=== PATIENT | female | born 1965 | race Caucasian/White ===

== ENCOUNTER 2019-08-13 17:39 | Observation (INO) | payer OTHER ==
[2019-08-13] VITALS (7 sets, daily range): BP systolic 118–138; BP diastolic 66–74; PULSE 78–82; TEMP 98.1
[~2019-08-13] VITALS: Ht 152.4 cm; Wt 67.9 kg
[~2019-08-13 17:39] MED LIST: AMITRIPTYLINE H25 M1 PO; ASPIRIN 81M81 MG/TA2 PO; BIOTIN10000 MC1 PO; CARDURA2 MG PO; CELEBREX100 MG PO; CELEXA 20MG20 MG/TAB PO; CELEXA20 MG PO; CLARITIN 1010 MG/TAB PO; COLACE 100100 MG/CAP PO; COZAAR 25MG25 MG/TAB PO; DULCOLAX S10 MG/SUPP RC; FERROUS SULFATE65 MG PO; LANTUS100 U/ML SQ; LEVAQUIN 750MG750 M1 PO; LEVEMIR SQ; LEXAPRO20 MG PO; LIDODERM 5% PATC1 EA TP; LIPITOR 40MG TA40 MG PO; LISINOPRIL10 MG PO; METHADONE5 MG PO; MONISTAT 7 VAG45 GM VG; MULTIPLE VITAMI1 CAP PO; MULTIPLE VITAMI1 TA5 PO; NADOLOL20 MG PO; NAPROSYN500 MG PO; NEURONTIN600 MG/TAB PO; NITROGLYCERIN0.4 MG SL; NITROSTAT0.4 MG/TAB SL; NOVLOG SQ; NOVOLOG 100U100 U/M1 SQ; NOVOLOG FLEX100 U/ML SQ; OXYCONTIN 10MG10 MG PO; PERCOCET 325 MG1 TAB PO; PHENERGAN25 MG RC; PREMARIN0.3 MG PO; PROAIR HFA0.09 MG/AC IH; PROTONIX 40MG T40 MG PO; REGLAN 10MG10 MG/TAB PO; ROXICODONE30 MG PO; RT ADVAIR 528 DISKUS IH; RT SPIRIVA18 MCG IH; SAVELLA50 MG PO; SINEQUAN 2525 MG/CAP PO; SINGULAIR 110 MG/TAB PO; SYNTHROID0.075 MG/T PO; TIZANIDINE4 MG PO; VITAMIN B11000 MCG/M IM; VITAMIN D32000 IU PO; VOLTAREN GEL 1%1 TU TP; XOPENEX HF0.045 MG/A IH; ZANAFLEX 4MG TAB4 MG PO; ZOCOR40 MG PO; ZYRTEC10 MG PO
--- NOTE | 2019-08-13 18:54 | NUR ---
Pt arrives to medical unit rm 351 from other facility via EMS. Pt A&O x 4, reports being hungry, denies further needs. Call light in reach.
[2019-08-13] MEDS ORDERED: NEURONTIN300 MG/CAP PO (21:35)
[2019-08-13 21:50] LABS: ALANINE AMINOTRANSFERASE 11 U/L (4-34); ALKALINE PHOSPHATASE 94 U/L (50-136); ANION GAP 9 mmol/L (7-16); AST,SGOT 20 U/L (15-37); BILIRUBIN,TOTAL 0.6 mg/dL (0.0-1.0); BLOOD UREA NITROGEN 18 mg/dL (7-17); CALCIUM 8.8 mg/dL (8.4-10.2); CARBON DIOXIDE 34 mmol/L (22-30); CHLORIDE 94 mmol/L (98-107); CREATINE KINASE 38 U/L (30-135); CREATININE, serum 0.53 (0.52-1.25); GLUCOSE 367 mg/dL (74-106); MAGNESIUM 2.1 mg/dL (1.6-2.3); SODIUM 137 mmol/L (137-145); TOTAL PROTEIN 7.2 gm/dL (6.4-8.2)
[2019-08-13 21:53] LABS: POTASSIUM 2.7 mmol/L (3.4-5.0)
[2019-08-13 22:07] LABS: TROPONIN-I < 0.012 ng/mL (0.000-0.035)
[2019-08-14] VITALS (11 sets, daily range): BP systolic 94–148; BP diastolic 56–105; PULSE 69–103; TEMP 98–98.9
[2019-08-14 07:31] LABS: ANION GAP 8 mmol/L (7-16); BLOOD UREA NITROGEN 16 mg/dL (7-17); CALCIUM 9.1 mg/dL (8.4-10.2); CARBON DIOXIDE 33 mmol/L (22-30); CHLORIDE 95 mmol/L (98-107); CHOLESTEROL 222 mg/dL (120-200); CHOLESTEROL RISK RATIO 5.4; CREATININE, serum 0.46 (0.52-1.25); GLUCOSE 352 mg/dL (74-106); HDL CHOLESTEROL 41 mg/dL; LDL CHOLESTEROL 157 mg/dL; MAGNESIUM 2.4 mg/dL (1.6-2.3); POTASSIUM 3.3 mmol/L (3.4-5.0); SODIUM 136 mmol/L (137-145); TRIGLYCERIDE 122 mg/dL
[2019-08-14 07:50] LABS: TROPONIN-I < 0.012 ng/mL (0.000-0.035)
--- NOTE | 2019-08-14 07:52 | NUR ---
Pt assessment complete. Pt is sitting up in bed upon entry, she is A/O x4. Her breathing is even and unlabored on RA. Pt denies SOB, occasional cough present. Pt reports pain all over 7/10, requested PRN Morphine. Scheduled lidocaine patch to back. Denies chest pain specifically. Reports some nausea. IVF infusing without complications. No needs at this time. Call light within reach.
[2019-08-14 08:54] LABS: BASO % 0.2 % (0.0-2.0); EOS % 0.1 % (0-4.0); GRAN # 5.8 (1.4-6.5); GRAN % 67.9 % (42.2-75.2); HEMATOCRIT 38.2 % (37.0-47.0); HEMOGLOBIN 12.7 g/dl (12.5-16.0); LYMPH # 2.4 (1.2-3.4); LYMPH % 28.5 % (20.0-51.0); MEAN CELL VOLUME 84 fl (80.0-100.0); MEAN CORPUSCULAR HEMOGLOBIN 28 pg (27.0-31.0); MEAN CORPUSCULAR HGB CONC 33 g/dl (33.0-37.0); MEAN PLATELET VOLUME 9.2 fl (7.4-10.4); MONO # 0.3 (0.1-0.6); MONO % 2.9 % (1.7-9.3); PLATELET COUNT 386 K/mm3 (130-400); RED BLOOD COUNT 4.56 M/mm3 (4.10-5.30); REDCELL DISTRIBUTION WIDTH-CV 12.8 % (11.5-14.5)
--- NOTE | 2019-08-14 10:45 | NUR ---
Pt back from [facility] at this time. POC discussed with patient which included remaining NPO in preparation for any further procedures. Pt very upset about not being able to eat stating "this is getting ridiculous, I'm a diabetic. I will check myself out of here." Explained to the patient the reasoning behind these procedures, she is not interested. Talked to her about giving it a little bit of time before we make any drastic decisions. Pt stating "well it better not be very long". IVF infusing, SAMY Sepulveda notified. Will continue to monitor.
--- NOTE | 2019-08-14 11:34 | NUR ---
CORWIN met with the patient to discuss discharge plan. The patient lives in [place] with her , Tony (ph#[phone]), and a friend. She reports independence with ADLs and has a cane and rolaider. The patient's PCP is Dr. Mikayla Wolff and she receives her medication on [facility]. She reports no difficulties obtaining her meds. The patient does not have advanced directives completed, but she was interested in obtaining a form for DPOA-[facility]. CORWIN provided. The patient plans to return home with her upon discharge. No additional needs at this time.
[2019-08-14] MEDS ORDERED: ZITHROMAX500 M2 PO ×3 (13:00→14:04)
[2019-08-14] MEDS ORDERED: PREDNISONE20 MG PO ×3 (13:02→14:04)
--- NOTE | 2019-08-14 14:02 | NUR ---
Discharge paperwork and instructions reviewed with patient. All questions answered at this time. IV to [place] dc'd catheter intact. SAMY Sepulveda notified of change of pharmacies, medications to be sent to [facility] now. Awaiting ride at this time.
--- NOTE | 2019-08-14 14:14 | NUR ---
Pt wheeled out of facility at this time
== END 2019-08-14 14:14 | disposition home or self-care (01) ==
LOC: MEDICAL 17:39
PROVIDERS: Internal Medicine; ADMIT Hospitalist
DX: J40 Bronchitis, not specified as acute or chronic (principal); R91.1 Solitary pulmonary nodule; G89.29 Other chronic pain; R10.9 Unspecified abdominal pain; E11.9 Type 2 diabetes mellitus without complications; I10 Essential (primary) hypertension; E87.6 Hypokalemia; J44.9 Chronic obstructive pulmonary disease, unspecified; M79.7 Fibromyalgia; M19.90 Unspecified osteoarthritis, unspecified site; Z79.4 Long term (current) use of insulin; Z79.82 Long term (current) use of aspirin; Z79.899 Other long term (current) drug therapy; Z86.73 Personal history of transient ischemic attack (TIA), and cerebral infarction without residual deficits; Z98.84 Bariatric surgery status; F17.210 Nicotine dependence, cigarettes, uncomplicated; Z82.49 Family history of ischemic heart disease and other diseases of the circulatory system; Z88.5 Allergy status to narcotic agent; Z88.0 Allergy status to penicillin; Z88.8 Allergy status to other drugs, medicaments and biological substances
CPT/HCPCS: A9500; G0378; G0379; J1650; J1815; J2270; J2405; J2785; J7030; J7512

== ENCOUNTER 2020-07-19 18:34 | Inpatient (IN) | payer OTHER ==
[2020-07-19] VITALS (158 sets, daily range): BP systolic 154; BP diastolic 111; PULSE 114; TEMP 97.9; O2SAT 91–98
[~2020-07-19] VITALS: Ht 167.6 cm; Wt 74.8 kg
[~2020-07-19 18:34] MED LIST changes: +NEURONTIN300 MG/CAP PO; +PREDNISONE20 MG PO; +ZITHROMAX500 M2 PO
--- NOTE | 2020-07-19 20:25 | NUR ---
Pt arrived to ICU room 5 vai cart with EMS. Pt able to transfer from the cart to the ICU bed with SBA. Pt oriented to room and call light system. SAMY Marshall, at the bedside for assessment. Call light within reach.
[2020-07-19] MEDS ORDERED: LASIX 20MG TABL20 MG PO (21:35)
[2020-07-19] MEDS ORDERED: SEROQUEL 2525 MG/TAB PO (21:36)
[2020-07-19] MEDS ORDERED: ATARAX 25MG25 MG/TAB PO (21:37)
[2020-07-19] MEDS ORDERED: PROZAC40 MG PO (21:38)
[2020-07-19] MEDS ORDERED: TOPROL XL 25MG25 MG PO (21:38)
[2020-07-19] MEDS ORDERED: ZOFRAN ODT4 MG PO (21:40)
[2020-07-19] MEDS ORDERED: NARCAN4 MG NS (21:40)
[2020-07-19] MEDS ORDERED: PREMARIN VAG42.5 GM VG (21:41)
[2020-07-19] MEDS ORDERED: SYNTHROID0.075 MG/T PO (21:42)
[2020-07-19] MEDS ORDERED: PROAIR HFA0.09 MG/AC IH (21:48)
[2020-07-20] VITALS (750 sets, daily range): BP systolic 91–144; BP diastolic 51–92; PULSE 73–107; TEMP 97.7–99; O2SAT 87–100
[2020-07-20 05:59] LABS: BASO % 0.4 % (0.0-2.0); GRAN # 4.6 (1.4-6.5); LYMPH # 0.9 (1.2-3.4); LYMPH % 15.2 % (20.0-51.0); MEAN CELL VOLUME 82 fl (80.0-100.0); MEAN CORPUSCULAR HGB CONC 30 g/dl (33.0-37.0); MEAN PLATELET VOLUME 9.2 fl (7.4-10.4); MONO # 0.1 (0.1-0.6); PLATELET COUNT 397 K/mm3 (130-400); RED BLOOD COUNT 3.81 M/mm3 (4.10-5.30); REDCELL DISTRIBUTION WIDTH-CV 14.2 % (11.5-14.5)
[2020-07-20 06:03] LABS: HEMATOCRIT 31.2 % (37.0-47.0); HEMOGLOBIN 9.4 g/dl (12.5-16.0); MEAN CORPUSCULAR HEMOGLOBIN 25 pg (27.0-31.0)
[2020-07-20 06:08] LABS: ANION GAP 6 mmol/L (7-16); BLOOD UREA NITROGEN 11 mg/dL (7-17); CALCIUM 8.7 mg/dL (8.4-10.2); CARBON DIOXIDE 32 mmol/L (22-30); CHLORIDE 99 mmol/L (98-107); CREATININE, serum 0.55 (0.52-1.25); GLUCOSE 339 mg/dL (74-106); POTASSIUM 3.4 mmol/L (3.4-5.0); SODIUM 136 mmol/L (137-145)
[2020-07-20 06:20] LABS: TROPONIN-I 6 HR POST INITIAL < 0.012 ng/mL (0.000-0.034)
--- NOTE | 2020-07-20 07:11 | NUR ---
Bedside shift report given to MEME Vyas.
--- NOTE | 2020-07-20 12:31 | NUR ---
SPOKE WITH DR. CHAN REGARDING ELEVATED D-DIMER, NO ORDERS RECEIVED AT THIS TIME. HE ADVISED THIS RN TO EDUCATE PATIENT ON TRYING TO LIMIT SALT AND WATER INTAKE. PATIENT CURRENTLY HAS A BAG OF CHIPS AT THE BEDSIDE. I ATTEMPTED TO EDUCATE THE PATIENT ON EATING LESS SALT AND LIMITING HER CHIP INTAKE. SHE SAYS "THANK YOU FOR THE ADVICE, BUT I AM GOING TO DO WHAT I WANT."
[2020-07-20] MEDS ORDERED: ZANAFLEX 4MG TAB4 MG PO (14:19)
--- NOTE | 2020-07-20 15:21 | NUR ---
SW met with patient to conduct intake evaluation. Patient lives at home in [place] with her Tony Gruber (P# [phone]). Youngest son Uriel (P# [phone]) lives nearby. Patient was interested in [facility] paperwork and elected Tony as her agent. SW filled out paperwork, and this was signed by CORWIN and RN Lilliam Chester. Origianl was put on the chart, and copies were made and given to patient. Patient's PCP is Dr. Wolff at [facility]. Patient uses [facility] for pharmacy needs. Patient denies needing assistance with ADLs and has oxygen through [facility]. Patient denies needing assistance affording medications. Plan is to return home upon discharge with providing transportation. Social work will continueto follow.
--- NOTE | 2020-07-20 20:00 | NUR ---
Assessment complete. Pt is AXO X3, states she has pain "all over" that is worse in her spine. She is resting quietly in the bed watching her tablet and she denies further needs. Call light within reach.
[2020-07-21] VITALS (433 sets, daily range): BP systolic 100–155; BP diastolic 49–99; PULSE 82–118; TEMP 97.7–98.5; O2SAT 87–100
[2020-07-21 05:10] LABS: BASO # 0.1 (0.0-0.2); BASO % 0.7 % (0.0-2.0); EOS # 0.2 (0.0-0.7); EOS % 1.7 % (0-4.0); GRAN # 6.7 (1.4-6.5); GRAN % 59.5 % (42.2-75.2); LYMPH # 3.8 (1.2-3.4); LYMPH % 33.5 % (20.0-51.0); MEAN CELL VOLUME 82 fl (80.0-100.0); MEAN CORPUSCULAR HGB CONC 30 g/dl (33.0-37.0); MEAN PLATELET VOLUME 9.5 fl (7.4-10.4); MONO # 0.5 (0.1-0.6); MONO % 4.3 % (1.7-9.3); PLATELET COUNT 407 K/mm3 (130-400); RED BLOOD COUNT 3.53 M/mm3 (4.10-5.30); REDCELL DISTRIBUTION WIDTH-CV 14.4 % (11.5-14.5)
[2020-07-21 05:17] LABS: HEMATOCRIT 28.9 % (37.0-47.0); HEMOGLOBIN 8.8 g/dl (12.5-16.0); MEAN CORPUSCULAR HEMOGLOBIN 25 pg (27.0-31.0)
[2020-07-21 05:22] LABS: CALCIUM 8.8 mg/dL (8.4-10.2); CREATININE, serum 0.66 (0.52-1.25); POTASSIUM 3.2 mmol/L (3.4-5.0)
--- NOTE | 2020-07-21 07:10 | NUR ---
RECEIVED REPROT FROM MEME ARNOLD. PT SLEEPING ON RA. VSS. CALL LIGHT WITHIN REACH.
--- NOTE | 2020-07-21 07:24 | NUR ---
Bedside shift report given to MEME Vela.
--- NOTE | 2020-07-21 10:37 | NUR ---
Initial visit; Patient thanked [employer] Assembler for looking in on her and offering God's blessings and to keep her in [employer]'s prayers.
--- NOTE | 2020-07-21 12:58 | NUR ---
PT TO CATH AT 1155. RECEIVED REPORT FROM MEME RODRIGUEZ AT 1253. PT BACK TO ROOM VIA BED AT 1258. PLACED ON BEDSIDE CONTINUOUS MONITOR. CALL LIGHT AND PHONE WITHIN REACH. EDUCATED PT ON TR BAND. NO BLEEDING NOTED. VSS.
--- NOTE | 2020-07-21 16:00 | NUR ---
REPORT GIVEN TO MEME SKY ON MEDICAL. PT TRANSFERRED VIA ON RA TO 309. ALL PERSONAL BELONGINGS SENT WITH PT.
--- NOTE | 2020-07-21 17:08 | NUR ---
pt in room, pt reports pain 6/10 all over, pt wrist band visualized and 2ml removed no leakage or drainage. pt ordering dinner, no other needs
--- NOTE | 2020-07-21 17:34 | NUR ---
PT BAND DEFLATED BY 3ML. 3ML TOTAL LEFT IN BAND. NO BLEEDING OR OOZING AT SITE.
--- NOTE | 2020-07-21 17:57 | NUR ---
TR BAND DEFLATED COMPLETELY, BAND KEPT ON AT THIS TIME.
[2020-07-22 03:06] VITALS: BP 127/71; PULSE 98; TEMP 98.1
[2020-07-22 07:13] LABS: BASO # 0.1 (0.0-0.2); EOS # 0.6 (0.0-0.7); EOS % 6.2 % (0-4.0); GRAN # 5.4 (1.4-6.5); GRAN % 56.2 % (42.2-75.2); LYMPH % 31.3 % (20.0-51.0); MEAN CELL VOLUME 85 fl (80.0-100.0); MEAN CORPUSCULAR HGB CONC 29 g/dl (33.0-37.0); MEAN PLATELET VOLUME 9.6 fl (7.4-10.4); MONO # 0.5 (0.1-0.6); MONO % 4.9 % (1.7-9.3); PLATELET COUNT 371 K/mm3 (130-400); REDCELL DISTRIBUTION WIDTH-CV 14.5 % (11.5-14.5)
[2020-07-22 07:18] LABS: CALCIUM 8.3 mg/dL (8.4-10.2); CREATININE, serum 0.61 (0.52-1.25); MAGNESIUM 2.2 mg/dL (1.6-2.3); POTASSIUM 3.8 mmol/L (3.4-5.0)
[2020-07-22 07:22] LABS: HEMATOCRIT 29.7 % (37.0-47.0); HEMOGLOBIN 8.6 g/dl (12.5-16.0); MEAN CORPUSCULAR HEMOGLOBIN 25 pg (27.0-31.0)
[2020-07-22 07:47] VITALS: BP 139/91; PULSE 107; TEMP 98.6
--- NOTE | 2020-07-22 09:00 | NUR ---
Patient resting in bed at this time. Patient is alert and oriented, answers questions appropriately. Patient states that she is having back pain and requests PRN pain medication, administered per order. Patient denies further needs, call light within reach.
[2020-07-22] MEDS ORDERED: DIGITEK0.125 MG PO (09:38)
[2020-07-22] MEDS ORDERED: ALDACTONE 25MG25 M1 PO (09:38)
[2020-07-22] MEDS ORDERED: LASIX 40MG TABL40 MG PO (09:40)
[2020-07-22] MEDS ORDERED: PREDNISONE20 MG PO (09:41)
--- NOTE | 2020-07-22 09:51 | NUR ---
Follow-up visit; Patient thanked Plumber Maintenance for looking in on her again today. Elliottnir said she is feeling a lot better. Plumber Maintenance wished her well.
[2020-07-22 11:26] VITALS: BP 138/91; PULSE 99; TEMP 98.6
[2020-07-22] MEDS ORDERED: COZAAR 25MG25 MG/TAB PO (11:41)
--- NOTE | 2020-07-22 12:40 | NUR ---
Discharge teaching completed. Discussed discharge medications, follow up appointments, and discharge instructions. Patient verbalized understanding. INT removed, catheter intact, hemostasis achieved. Patient denied questions or concerns. Patient escorted to ED where she entered a private vehicle.
--- NOTE | 2020-07-22 14:36 | NUR ---
User Support Analyst attended clinical rounds with the team. The patient discharged home today, 07/22. The patient is independent and has discharge needs.
== END 2020-07-22 12:40 | disposition home or self-care (01) | DRG 287 ==
LOC: ICU 18:34 → MEDICAL 07-21 16:57
PROVIDERS: Student in an Organized Health Care Education/Training Program; ADMIT Hospitalist
PROC: B2111ZZ Fluoroscopy of Multiple Coronary Arteries using Low Osmolar Contrast (ICD-10-PCS; principal; 2020-07-21)
DX: I11.0 Hypertensive heart disease with heart failure (principal); J44.1 Chronic obstructive pulmonary disease with (acute) exacerbation; I50.23 Acute on chronic systolic (congestive) heart failure; I20.0 Unstable angina; I42.0 Dilated cardiomyopathy; R00.0 Tachycardia, unspecified; F17.210 Nicotine dependence, cigarettes, uncomplicated; E11.9 Type 2 diabetes mellitus without complications; E87.6 Hypokalemia; Z79.4 Long term (current) use of insulin; M79.7 Fibromyalgia; G89.29 Other chronic pain; D50.9 Iron deficiency anemia, unspecified; G47.00 Insomnia, unspecified; F32.9 Major depressive disorder, single episode, unspecified; I34.0 Nonrheumatic mitral (valve) insufficiency; E03.9 Hypothyroidism, unspecified; Z79.890 Hormone replacement therapy; Z86.73 Personal history of transient ischemic attack (TIA), and cerebral infarction without residual deficits; Z98.84 Bariatric surgery status; Z87.442 Personal history of urinary calculi; Z79.51 Long term (current) use of inhaled steroids
CPT/HCPCS: 99223-AI; 99232-AI; 99239; C1769; J0456; J1644; J1650; J1815; J1940; J2250; J3010; J3480; J7050; J7512; Q9967